=== PATIENT | male | born 1955 | race Caucasian/White ===

== ENCOUNTER → 2017-11-17 15:51 | Outpatient (CLI) | payer BC | END | disposition home or self-care (01) | LOC: D.CT 15:51 | DX: R42 Dizziness and giddiness (principal) ==

== ENCOUNTER → 2018-03-17 14:26 | Outpatient (CLI) | payer BC, OTHER | END | disposition home or self-care (01) | LOC: D.MRI 14:26 | DX: M25.561 Pain in right knee (principal) ==

== ENCOUNTER → 2018-11-16 07:09 | Outpatient (CLI) | payer BC, OTHER | END | disposition home or self-care (01) | LOC: D.NM 10-28 09:30 | DX: K21.9 Gastro-esophageal reflux disease without esophagitis (principal) ==

== ENCOUNTER → 2019-02-10 13:35 | Outpatient (CLI) | payer BC, OTHER | END | disposition home or self-care (01) | LOC: D.RT 13:35 | PROVIDERS: ATTEND Family Medicine | DX: R06.00 Dyspnea, unspecified (principal) ==